=== PATIENT | male | born 1965 | race Caucasian/White ===

== ENCOUNTER → 2023-09-25 | Outpatient (CLI) | payer OTHER ==
--- NOTE | 2023-09-25 14:06 | XR ---
EXAMINATION TYPE: XR finger LT DATE OF EXAM: 09/25/2023 COMPARISON: None HISTORY: Splinter in thumb TECHNIQUE: 3 view left thumb FINDINGS: No acute fracture or dislocation is evident. Joint spaces are preserved. Soft tissues appea r normal. No radiopaque and no radiolucent foreign bodies identified. IMPRESSION: 1. Negative 3 view left thumb. Follow-up can be performed as clinically indicated
== END | disposition home or self-care (01) ==
LOC: RADXRMAIN 13:04
PROVIDERS: ATTEND Emergency Medicine
DX: S60.352A Superficial foreign body of left thumb, initial encounter (principal)